=== PATIENT | female | born 1970 | race Two or more races ===

== ENCOUNTER 2025-04-20 17:37 | Emergency (ER) | payer OTHER ==
[~2025-04-20] VITALS: Ht 165.1 cm; Wt 112.2 kg
--- NOTE | 2025-04-20 18:17 | ED.PDOC ---
GI ASSESSMENT HPI Comments Patient is a 54-year-old female with past medical history of hemorrhoids, sciatica, herniated disc, who comes in due to abdominal pain. According to the patient, she went to [facility] urgent care on 04/14/2025 where she was treated for UTI and was told she might have diverticulitis and was recommended to get a CT scan, however, patient notes she did not go to the ER at the time. Patient was discharged with Augmentin for 7 days. Patient notes abdominal pain continued to worsen and starting yesterday became sharp, intermittent, 5/10 intensity, worsened with eating without any relieving factors. Of note, per patient she has been taking 600 mg of ibuprofen b.i.d. for the last 1 week and prior to that she was also using ibuprofen at least 2-3 times per week. On review of systems patient is complaining of alternating bowel habits and urinary frequency. Past medical history:hemorrhoids, sciatica, herniated disc Past surgical history: Denies Home medications: Progesterone, hormone replacement therapy, tirzepatide last dose 1 month ago Social & Personal history: Denies smoking, occasionally drinks alcohol last drink being scabbing. Denies using drugs. Lives at home with boyfriend. Allergies: Denies Patient seen and examined at bedside. Patient is alert and oriented to time, place person and responding to all questions. Eyes: No Pain, No Vision change, No Conjunctivae inflammation, No Eyelid inflammation, No Other, No Redness ENT: No Ear pain, No Ear discharge, No Nose pain, No Nose discharge, No Nose congestion, No Mouth pain, No Mouth swelling, No Throat pain, No Throat swelling, No Other Cardiovascular: No Chest Pain, No Palpitations, No Orthopnea, No Paroxysmal No Dyspnea, No Edema, No Lt Headedness, No Other Respiratory: No Cough, No Dry, No Shortness of breath, No SOB with exertion, No Wheezing, No Hemoptysis, No Pleuritic Pain, No Sputum, No Other Gastrointestinal: No Nausea, No Vomiting, Abdominal Pain, Diarrhea, Consti pation, No Melena, No Hematochezia, No Other Genitourinary: No Dysuria, Frequency, No Incontinence, No Hematuria, No Retention, No Other Musculoskeletal: No other, No neck pain, No shoulder pain, No arm pain, No back pain, No hand pain, No leg pain, No foot pain Skin: No Rash, No Lesions, No Jaundice, No Bruising, No Other Chief Complaint: Back Pain Time Seen by MD: 17:45 Allergies: Coded Allergies: NO KNOWN ALLERGIES (Unverified , 04/20/25) Home Meds Active Scripts Docusate Sodium (Colace) 100 Mg Cap, 1 CAP PO BID for 14 Days, #30 CAP Prov:POLLY FERMIN RESIDENT 04/20/25 Information Source: Patient Mode of Arrival: Ambulatory Timing: Days Duration: Intermittent Prehospital treatment: Pain Meds Quality: Sharp, Colicky Vomitus: None Severity: Moderate Recent: NSAID'S, Antibiotics Recent Hx of: Constipation Pain Location: LUQ Modifying Factors: Food; Exertion, Position, Movement, Antacids, Lying still, Nothing Associated sign and symptoms: Diarrhea, Constipation Physical Exam General Appearance: None, Normal HEENT: Normal ENT Inspection, PERRL/EOMI Neck: None, Non-Tender, Normal, Normal Inspection Respiratory: Lungs Clear, No Accessory Muscle Use, No Respiratory Distress, Normal Breath Sounds Cardiovascular: No Murmur, No Gallop, Regular Rate/Rhythm Breast Exam: Deferred Gastrointestinal: LUQ, Normal Bowel Sounds, Tenderness Genitalia: Deferred Pelvic: Deferred Rectal: Rectal Exam not done Extremities: No calf tenderness, Normal inspection, Normal range of motion, Non-tender, No pedal edema Neurologic: Alert, No Motor Deficits, No Sensory Deficits Cerebellar Function: NOT DONE Reflexes: NOT DONE Skin: Dry, None, Normal Color, Warm Peripheral Pulses: 2+ dorsalis pedis (R), 2+ dorsalis pedis (L) Lymphatic: NOT DONE Was a procedure done? Was a procedure done?: No GI differential Dx Differential Diagnosis: Diverticular disease, Gastritis/PUD, Gastroenteritis, UTI X-Ray, Labs, Meds, VS Vital Signs Date Time Temp Pulse Resp B/P (MAP) Pulse Ox O2 Delivery O2 Flow Rate FiO2 04/20/25 17:39 97.8 82 18 114/61 96 97.8 Lab Test 04/20/25 18:24 Range/Units White Blood Count 9.1 4.4-10.8 10^3/uL Red Blood Count 4.70 4.0-5.20 10^6/uL Hemoglobin 14.6 12.2-16.2 g/dL Hematocrit 42.9 36.0-46.0 % Mean Corpuscular Volume 91.2 80.0-100.0 fL Mean Corpuscular Hemoglobin 31.1 28.0-32.0 pg Mean Corpuscular Hemoglobin Concent 34.1 32.0-36.0 g/dL Red Cell Distribution Width 12.9 11.8-14.3 % Platelet Count 272 140-450 10^3/uL Mean Platelet Volume 8.2 6.9-10.8 fL Neutrophils (%) (Auto) 51.6 37.0-80.0 % Lymphocytes (%) (Auto) 38.3 10.0-50.0 % Monocytes (%) (Auto) 8.2 0.0-12.0 % Eosinophils (%) (Auto) 1.4 0.0-7.0 % Basophils (%) (Auto) 0.5 0.0-2.0 % Neutrophils # (Auto) 4.7 1.6-8.6 10 ^3/uL Lymphocytes # (Auto) 3.5 0.4-5.4 10 ^3/uL Monocytes # (Auto) 0.7 0-1.3 10 ^3/uL Eosinophils # (Auto) 0.1 0-0.8 10 ^3/uL Basophils # (Auto) 0 0-0.2 10 ^3/uL Nucleated Red Blood Cells 0.0 % Sodium Level 142 136-145 mmol/L Potassium Level 4.2 3.5-5.1 mmol/L Chloride Level 103 98-107 mmol/L Carbon Dioxide Level 31 20-31 mmol/L Anion Gap 8 5-15 Blood Urea Nitrogen 15 9-23 mg/dL Creatinine 0.72 0.550-1.02 mg/dL Glomerular Filtration Rate Calc 101 >90 mL/min BUN/Creatinine Ratio 20.8 H 10.0-20.0 Serum Glucose 86 74-106 mg/dL Calcium Level 9.1 8.7-10.4 mg/dL Lipase 55 H 12-53 U/L Time of 1ST Reevaluation: 19:30 Reevaluation 1ST: Improved Patient Education/Counseling: Diagnosis, Treatment, Prognosis, Need For Follow Up Family Education/Counseling: No Family Present SEPSIS Sepsis Screen Date sepsis recognized/suspect: Apr 20, 2025 Time Sepsis recognized/suspect: 1740 Recent Procedure: No On Antibiotic Therapy: No Respiratory Rate >20: No Heart Rate >90: No Temp<36 C (96.8 F) or >38.3 C: No SBP <90 or MAP <65 mmHG: No New Acute Mental Status Change: No Is the patient on CPAP, BIPAP,: No Physician Orders Urinalysis (04/20/25 18:11) Ct Ab Pel Wo Con-No Oral Or Iv (04/20/25 18:11) Vital Signs Date Time Temp Pulse Resp B/P (MAP) Pulse Ox O2 Delivery O2 Flow Rate FiO2 04/20/25 17:39 97.8 82 18 114/61 96 97.8 Laboratory Tests Test 04/20/25 18:24 White Blood Count 9.1 10^3/uL (4.4-10.8) Departure 1 Departure Time of Disposition: 19:30 Impression: Primary Impression: Constipation Qualified Codes: K59.01 - Slow transit constipation Additional Impressions: Abdominal pain Qualified Codes: R10.12 - Left upper quadrant pain Gastritis Qualified Codes: K29.70 - Gastritis, unspecified, without bleeding Disposition: HOME / SELF CARE / HOMELESS Condition: Stable e-Prescriptions Docusate Sodium (Colace) 100 Mg Cap 1 CAP PO BID for 14 Days, #30 CAP Prov: POLLY FERMIN RESIDENT 04/20/25 Comments Upon re-evaluation patient noted improvement in her abdominal pain. CBC and BMP largely unremarkable, CT abdomen pelvis shows no acute abnormality. Patient was discharged home with Colace 100 mg b.i.d. for 7 days. Patient was given strict return precautions to which she demonstrated understanding. Per patient she has a scheduled appointment with her PCP on 04/25/2025. Recommended patient to undergo screening colonoscopy at her earliest convenience. POLLY FERMIN RESIDENT Apr 20, 2025 18:17
[2025-04-20 18:34] LABS: Hematocrit 42.9 % (36.0-46.0); Hemoglobin 14.6 g/dL (12.2-16.2); Mean Corpuscular Hemoglobin 31.1 pg (28.0-32.0); Mean Corpuscular Volume 91.2 fL (80.0-100.0); Nucleated Red Blood Cells % 0.0 %
[2025-04-20 18:41] LABS: Chloride 103 mmol/L (98-107); Potassium 4.2 mmol/L (3.5-5.1); Sodium 142 mmol/L (136-145)
[2025-04-20 18:42] LABS: Anion Gap 8 (5-15); Calcium 9.1 mg/dL (8.7-10.4); Carbon Dioxide 31 mmol/L (20-31)
[2025-04-20 18:47] LABS: BUN/Creatinine Ratio 20.8 (10.0-20.0); Blood Urea Nitrogen 15 mg/dL (9-23); Glucose 86 mg/dL (74-106)
[2025-04-20 18:49] LABS: Lipase 55 U/L (12-53)
--- NOTE | 2025-04-20 19:08 | DVH ---
COMPUTERIZED TOMOGRAPHY ABDOMEN AND PELVIS WITHOUT CONTRAST REASON FOR EXAM: Left upper quadrant pain COMPARISON: None TECHNIQUE: Spiral scans were acquired from the diaphragm to the symphysis pubis without intravenous contrast administration. 2-D coronal and sagittal reformatted images were provided. Radiation optimization: All CT scans at this facility use at least one of these dose optimization techniques: Automated exposure control mA and/or kV adjustment per patient size (includes targeted exams where dose is matched to clinical indication) or iterative reconstruction. RADIATION DOSE: CTDI: 19.18 mGy DLP: 1057.09 mGy-cm FINDINGS: The visualized lung bases are grossly clear. There is no pleural effusion. There is no pericardial effusion. The spleen is not enlarged. The liver is normal in size and contour. Evaluation of the abdominal organs is suboptimal in the absence of intravenous contrast. The gallbladder is not distended. No calcified gallstone is identified. Unenhanced appearance of the pancreas is grossly unremarkable. The adrenal glands appear normal. The kidneys are similar in size. There is no hydronephrosis of either kidney. There is no renal, ureteral, or bladder calculus. The urinary bladder is decompressed and is not well evaluated. The uterus and ovaries are within normal limits. No free fluid is identified in the abdomen or pelvis. The colonic stool burden is overall small. The appendix is normal. There is no distention of the small bowel to suggest obstruction. No pathologic lymphadenopathy is identified by size criteria. There is no abdominal aortic aneurysm. No acute osseous abnormality is identified. IMPRESSION: No acute abnormality is identified in the abdomen or pelvis within the limitations of this noncontrast study.
[2025-04-20] MEDS ORDERED: DOCU-94 PO (19:27)
[2025-04-20] MEDS ORDERED: FAMO20TA10 PO (19:32)
[2025-04-20 19:35] VITALS: BP 102/63; PULSE 63; RESP 16; TEMP 97.6; O2SAT 96
[2025-04-20 19:46] LABS: Urine Protein, UAD Negative (Negative)
== END 2025-04-20 19:43 | disposition home or self-care (01) ==
LOC: ER 17:37
DX: K29.70 Gastritis, unspecified, without bleeding (principal); K59.00 Constipation, unspecified; Z87.19 Personal history of other diseases of the digestive system; Z87.440 Personal history of urinary (tract) infections
CPT/HCPCS: 36415; 74176; 80048; 81001; 83690; 85025